=== PATIENT | female | born 1985 | race Two or more races ===

== ENCOUNTER 2017-02-18 02:49 | Emergency (ER) | payer OTHER ==
[2017-02-18 03:15] VITALS: BP 121/81; PULSE 82; TEMP 98.1; BMI 23.5
[2017-02-18] MEDS ORDERED: KETOROLAC TROMETHAMINE 30 MG/1 ML VIAL IM ONE (04:19)
--- NOTE | 2017-02-18 04:43 | PDOC ---
History of Present Illness - General Chief Complaint: Pain, Acute Stated Complaint: NECK PAIN Time Seen by Provider: 02/18/17 03:16 - History of Present Illness Initial Comments: 02/18/17 04:38 CHIEF COMPLAINT: neck discomfort HISTORY OF PRESENT ILLNESS: 31 yo F with hx of NIDDM presents to ED with neck pain x 1 day. Patient reports waking up in the morning with neck discomfort. She does report lifting heavy items including her child that could cause muscle pain in her left shoulder and neck. She took 600 mg of ibuprofen around 3 pm, which did relieve the pain, but then the pain returned later in the evening. She reports that when she turns her head she feel like it causes a headache. No recent travel or sick contacts. PAST MEDICAL HISTORY: Denies past medical history FAMILY HISTORY: Denies SOCIAL HISTORY: Denies tobacco, alcohol, illicit drug use. SURGICAL HISTORY: Denies ALLERGIES: No known drug allergies REVIEW OF SYSTEMS General/Constitutional: Denies fever or chills. Denies weakness, weight change. HEENT: Denies change in vision. Denies ear pain or discharge. Denies sore throat. Cardiovascular: Denies chest pain or shortness of breath. Respiratory: Denies cough, wheezing, or hemoptysis. Gastrointestinal: Denies nausea, vomiting, diarrhea or constipation. Denies rectal bleeding. Genitourinary: Denies dysuria, frequency, or change in urination. Musculoskeletal: Left neck discomfort. Denies joint or muscle swelling or pain. Skin and breasts: Denies rash or easy bruising. PHYSICAL EXAM General Appearance: Well-appearing, appropriately dressed. No apparent distress. HEENT: EOMI, PERRLA, normal ENT inspection, normal voice, TMs normal, pharynx normal. No conjunctival pallor. No photophobia, scleral icterus. Neck: Tenderness to left neck. on palpation. No tenderness to midline cervical spine. Full ROM. Supple. Trachea midline. No tenderness, rigidity, carotid bruit, stridor, lymphadenopathy, or thyromegaly. Respiratory/Chest: Lungs CTAB. No shortness of breath, chest tenderness, respiratory distress, accessory muscle use. No crackles, rales, rhonchi, stridor , wheezing, dullness Cardiovascular: RRR. S1, S2. No JVD, murmur, bradycardia, tachycardia. Vascular Pulses: Dorsalis-Pedis (R): 2+, Dorsalis-Pedis (L): 2+ Gastrointestinal/Abdominal: Normal bowel sounds. Abdomen soft, non-distended. No tenderness or rebound tenderness. No organomegaly, pulsatile mass, guarding , hernia, hepatomegaly, splenomegaly. Lymphatic: No adenopathy, tenderness. Musculoskeletal/Extremities: Normal inspection. FROM of all extremities, normal capillary refill. Pelvis Stable. No CVA tenderness. No tenderness to extremities, pedal edema, swelling, erythema or deformity. Integumentary: Appropriate color, dry, warm. No cyanosis, erythema, jaundice or rash Neurologic: prosthetic makeup designer II-XII intact. Fully oriented, alert. Appropriate mood/affect. Motor strength 5/5. No appreciable EOM palsy, facial droop or sensory deficit. Past History - Past Medical History Allergies/Adverse Reactions: Allergies Allergy/AdvReac Type Severity Reaction Status Date / Time No Known Allergies Allergy Verified 02/18/17 03:11 Home Medications: Ambulatory Orders Diazepam [Valium] 5 mg PO HS #5 tablet MDD 2 02/18/17 Ibuprofen [Motrin -] 600 mg PO TID PRN 02/18/17 Metformin HCl [Glucophage -] 850 mg PO BID 02/18/17 Naproxen 250 mg PO BID #14 tablet 02/18/17 Diabetes: Yes (type 2) - Psycho/Social/Smoking Cessation Hx Suicidal Ideation: No Smoking History: Never smoked *Physical Exam - Vital Signs Last Vital Signs Temp Pulse Resp BP Pulse Ox 98.1 F 82 18 121/81 100 02/18/17 03:11 02/18/17 03:11 02/18/17 03:11 02/18/17 03:11 02/18/17 03:11 Medical Decision Making - Medical Decision Making 02/18/17 04:41 31 yo F with hx of NIDDM presents to ED with neck pain x 1 day. Patient is well appearing and in no distress. Mild tenderness to left neck with palpation. -30 mg IM Toradol Cyclobenzaprine rx sent to pharm. Advised patient to take medication as prescribed and f/u with orthopedics if pain persists past 2-3 days. Advised patient of signs and symptoms for return to ER; patient verbalized understanding and agrees to plan. *DC/Admit/Observation/Transfer Diagnosis at time of Disposition: Neck muscle spasm - Discharge Dispostion Disposition: HOME Condition at time of disposition: Stable Admit: No - Prescriptions Prescriptions: Naproxen 250 mg PO BID #14 tablet Diazepam [Valium] 5 mg PO HS #5 tablet MDD 2 - Referrals Referrals: Juany Harden MD [Primary Care Provider] - Colby Gandara MD [Staff Physician] - - Patient Instructions Printed Discharge Instructions: DI for Torticollis Additional Instructions: Please take medication as prescribed and follow up with orthopedics this week if symptoms persist. Do not drive or operate machinery while taking Valium. If you experience any sudden headache, change in vision, difficulty breathing, fever, chills, nausea, vomiting, or any new or worsening symptoms, please return to the ER.
[2017-02-18] MEDS ORDERED: KETOROLAC TROMETHAMINE 30 MG/1 ML VIAL ONE (04:46)
[2017-02-18] MEDS ORDERED: diazePAM 5 MG TABLET PO ONE (05:39)
[2017-02-18] MEDS ORDERED: diazePAM 5 MG TABLET ONE (05:46)
== END 2017-02-18 06:32 | disposition home or self-care (01) ==
LOC: JER 02:49
PROC: 3E0233Z Introduction of Anti-inflammatory into Muscle, Percutaneous Approach (ICD-10-PCS; principal; 2017-02-18)
DX: M62.838 Other muscle spasm (principal); E11.9 Type 2 diabetes mellitus without complications; Z79.84 Long term (current) use of oral hypoglycemic drugs
CPT/HCPCS: 84703; 96372; 99282-25

== ENCOUNTER 2018-07-10 12:30 | Inpatient (IN) | payer OTHER ==
[2018-07-10] MEDS ORDERED: OXYTOCIN 30 UNITS in 0.9% NS 30 UNIT/500 ML INFUS.BAG IVPB SCH (13:30)
--- NOTE | 2018-07-10 13:35 | HP ---
Past Medical History - Admission Chief Complaint: Here for IOL for GDMA2 History Source: Patient Limitations to Obtaining History: No Limitations, Language Barrier - Past Medical History LEATHER SORTER: No: Alzheimer's, CVA, Dementia, Migraine, Multiple Sclerosis, Peripheral Neuropathy, Parkinson's, Seizure, Syncope, TIA, Vertigo, Other Cardiovascular: No: AFIB, Aneurysm, Aortic Insufficiency, Aortic Stenosis, CAD, CHF, Deep Vein Thrombosis, HTN, Hyperlipdemia, MA, Mitral Insufficiency, Mitral Stenosis, Murmur, Pulmonary Hypertension, Other Pulmonary: No: Asthma, Bronchitis, Cancer, COPD, O2 Dependent, Pneumonia, Previously Intubated, Pulmonary Embolus, Pulmonary Fibrosis, Sleep Apnea, Other Gastrointestinal: No: Ascites, Cancer, Constipation, Crohn's Disease, Diverticulitis, Diverticulosis, Esophageal Varices, Gastritis, GERD, GI Bleed, Hemorrhoids, Hiatal Hernia, Inflamatory Bowel Disease, Irritable Bowel Disease, Pancreatitis, Peptic Ulcer Disease, Ulcerative Colitis, Other Hepatobiliary: No: Cirrhosis, Cholelithiasis, Cholecystitis, Choledocholithiasis , Hepatitis A, Hepatitis B, Hepatitis C, Other Renal/: No: Renal Failure, Renal Inusuff, BPH, Cancer, Hematuria, Hemodialysis , Neurogenic Bladder, Renal Calculi, UTI, Other Reproductive: No: Ectopic , Endometriosis, Fibroids, PID, Polycystic Ovary Syndrome, Postmenopausal, Other Infectious Disease: No: AIDS, C-Diff, Herpes Zoster, HIV, MRSA, STD's, Tuberculosis, VREF, Other Psych: No: Addictions, Anxiety, Bipolar, Depression, Panic, Psychosis, Schizophrenia, Other - Past Surgical History Past Surgical History: No: None, AAA Repair, AICD, Amputation, Appendectomy, Arthrosocopy, AV Fistula/Graft, Bariatric Surgery, Breast Biopsy, Bypass, CABG, Carotid Endarterectomy, Cataract Removal, Cholecystectomy, Colectomy, Colonoscopy, Colostomy, Craniotomy, , Cystectomy, Hernia Repair, Hysterectomy, Ileal Conduit, Ileosotomy, Joint Replacement, Kidney Transplant, Laminectomy, Liver Transplant, Mastectomy, Nephrectomy, Oopherectomy, Orchiectomy, Permanent Pacemaker, Prostatectomy, Splenectomy, Stent, Thoracotomy , TURP, Tonsillectomy, Tubal Ligation, Upper Endoscopy, Valve Replacement, Vasectomy, Vein Stripping/Ligation Hx Myomectomy: No Hx Transabdominal Cerclage: No - Smoking History Smoking history: Never smoked - Alcohol/Substance Use Hx Alcohol Use: No History of Substance Use: reports: None - Social History Usual Living Arrangement: Yes: With Spouse ADL: Independent History of Recent Travel: No Home Medications - Allergies Allergies/Adverse Reactions: Allergies Allergy/AdvReac Type Severity Reaction Status Date / Time No Known Allergies Allergy Verified 07/10/18 13:25 - Home Medications Home Medications: Ambulatory Orders Insulin (Levemir) [Levemir Vial] 45 units SCJ HS 07/10/18 Insulin Aspart [Novolog Flexpen] 50 units SCJ ACBK 07/10/18 Pnv,Calcium 72/Iron/Folic Acid [ Plus Tablet] 1 tab PO DAILY 07/10/18 Review of Systems - Review of Systems Constitutional: denies: No Symptoms, Chills, Diaphoresis, Fever, Lethargy, Loss of Appetite, Malaise, Night Sweats, Unintentional Wgt. Loss, Weakness, Other Eyes: denies: No Symptoms, Blind Spots, Blurred Vision, Double Vision, Eye Pain , Floaters, Photophobia, Recent Change in Vision, Other HENT: denies: No Symptoms, Difficult Swallowing, Ear Discharge, Ear Pain, Epistaxis, Gingival Bleeding, Hearing Loss, Mouth Swelling, Nasal Congestion, Ocular Prosthesis, Throat Pain, Toothache, Ringing in Ears, Other Neck: denies: No Symptoms, Decreased ROM, Lumps, Pain on Movement, Stiffness, Swollen Glands, Tenderness, Other Cardiovascular: denies: No Symptoms, Chest Pain, Edema, Palpitations, Shortness of Breath, Other Respiratory: denies: No Symptoms, Cough, Exercise Intolerance, Hemoptysis, Orthopnea, PND, Snoring, SOB, SOB on Exertion, Wheezing, Other Gastrointestinal: denies: No Symptoms, Abdominal Pain, Bloating, Constipation, Diarrhea, Dysphagia, Indigestion, Melena, Nausea, Rectal Bleeding, Vomiting, Vomiting Blood, Other Genitourinary: denies: No Symptoms, Burning, Discharge, Dysuria, Flank Pain, Frequency, Hematuria, Incontinence, Lesions, Menses, Pain, Testicular Mass, Testicular Pain, Testicular Swelling, Urgency, Vaginal Bleeding, Other Breasts: denies: No Symptoms Reported, See HPI, Breast Implants, Discharge from Nipple, Lumps, Pain, Skin Changes, Other Musculoskeletal: denies: No Symptoms, Back Pain, Crepitus, Decreased ROM, Extremity Pain, Joint Pain, Joint Swelling, Muscle Pain, Muscle Cramps, Muscle Weakness, Other Integumentary: denies: No Symptoms, Blister, Bruising, Change in Color, Eczema, Erythema, Incision, Lesions, Lump, Pallor, Pruritis, Rash, Wound, Other Neurological: denies: No Symptoms, Change in LOC, Change in Speech, Confusion, Dizziness, Headache, Incoordination, Numbness, Parasthesia, Pre-Existing Deficit , Seizure, Syncope, Tremors, Unsteady Gait, Weakness, Other Endocrine: denies: No Symptoms, Excessive Sweating, Flushing, Increased Hunger, Increased Thirst, Intolerance to Cold, Intolerance to Heat, Unexplained Weight Gain, Unexplained Weight Loss, Other Hematology/Lymphatic: denies: No Symptoms, Easily Bruised, Excessive Bleeding, Swollen Glands, Other Psychiatric: denies: No Symptoms, Altered Sleep Pattern, Anxiety, Depression, Hallucinations, Panic, Paranoia, Suicidal, Other Physical Exam - Maternity Constitutional: Yes: Well Nourished, No Distress, Calm Eyes: Yes: WNL, Conjunctiva Clear, EOM Intact Cardiovascular: Yes: WNL, Regular Rate and Rhythm - Abdominal Exam/OB Number of Fetuses: Single Presentation: Vertex Contractions: Yes Regularity: Irregular Intensity: Mild/Mod Monitor Mode: External Category: I Accelerations: Uniform Decelerations: None - Vaginal Exam/OB Vaginal Bleediing: No Speculum Exam: No Dilatation (cm): 3 Effacement (%): 50 Amniotic Membrane Status: Intact Presentation: Vertex/Position Station: -3 - Physical Exam Edema: No Hemorrhage Risk Assessment - Risk Factors Medium Risk Factors: Yes: EFW greater than 4000g High Risk Factors: Yes: None (Prior to 10lb infant without shoulder dystocia) Risk Score: 1 Risk Level: Medium Risk Problem List - Problems (1) Gestational diabetes mellitus (GDM) affecting fourth Code(s): O24.419 - GESTATIONAL DIABETES MELLITUS IN , [facility] CONTROL Assessment/Plan 33yo @ 39wks here for IOL for GDMA2 -Admit to L&D -Clear liquids -Ampicillin for GBS -Pitocin for IOL -H/O 9 and 10lb NSVDs without shoulder dystocia -Cat 1 tracing Syeda Mishra MD
[2018-07-10] MEDS ORDERED: AMPICILLIN - 2 GM in SODIUM CHLORIDE 100 ML IVPB ONE (13:52)
[2018-07-10] MEDS ORDERED: SODIUM CHLORIDE 100 ML IVPB ONE ×2 (13:56→17:12)
[2018-07-10] MEDS ORDERED: AMPICILLIN SODIUM 2 GM VIAL ONE (13:56)
[2018-07-10] MEDS: LACTATED RINGERS SOLUTION 1,000 ML/1,000 ML INFUS.BAG IV SCH ×2 (14:00→21:26)
[2018-07-10 14:35] VITALS: BMI 34.0
[2018-07-10] MEDS ORDERED: TUBERCULIN PPD 5 TU/0.1ML SYRINGE (IN PATIENT USE ONLY) ID ONE (16:15)
[2018-07-10 16:20] LABS: INR 0.91 (0.83-1.09); PROTHROMBIN TIME (PATIENT) 10.7 SEC (9.7-13.0)
[2018-07-10 16:22] LABS: ACTIVATED PTT 23.7 SECONDS (25.2-36.5); BASO % 0.5 % (0-2.0); EOS % 0.5 % (0-4.5); HEMATOCRIT 38.8 % (32.4-45.2); HEMOGLOBIN 12.7 GM/dL (10.7-15.3); LYMPH % 28.4 % (8-40); MCH 27.5 pg (25.7-33.7); MCHC 32.8 g/dl (32.0-36.0); MEAN CELL VOLUME 83.8 fl (80-96); MEAN PLT VOLUME 11.7 fl (7.5-11.1); MONO % 8.8 % (3.8-10.2); NEUT % 61.8 % (42.8-82.8); PLATELET COUNT 150 K/MM3 (134-434); RBC 4.63 M/mm3 (3.60-5.2); RDW 14.2 % (11.6-15.6); WHITE BLOOD COUNT 8.4 K/mm3 (4.0-10.0)
[2018-07-10] MEDS ORDERED: AMPICILLIN SODIUM 1 GM VIAL ONE ×2 (17:12→21:44)
[2018-07-10] MEDS: AMPICILLIN - 1 GM in SODIUM CHLORIDE 100 ML IVPB SCH ×2 (18:00→21:57)
--- NOTE | 2018-07-10 18:12 | PN ---
Progress Note, Labor Vaginal Exam #1 Labor Exam Date: 07/10/18 Labor Exam Time: 18:11 Heart Rate (range): Cat 1 Dilatation: 3 Effacement (%): 50 Amniotic Membrane Status: Ruptured Presentation: Vertex/Position Station: -3 (IOL for GDMA2 AROM, clears FS q4 hours Anticipate JENNIFER Mishra MD)
[2018-07-10] MEDS ORDERED: ELECTROLYTE-148 SOLN 1,000 ML IV SCH (22:00)
[2018-07-10] MEDS ORDERED: FENTANYL/BUPIVACAINE/NS/PF - PCEA - 50 ML DISP.SYRIN EP ONE (22:29)
[2018-07-10] MEDS ORDERED: FENTANYL/BUPIVACAINE/NS/PF - PCEA - 50 ML DISP.SYRIN EP SCH (23:05)
[2018-07-10] MEDS ORDERED: OXYTOCIN 20 UNITS in 0.9% NS 20 UNIT/1,000 ML INFUS.BAG IV ONE (23:17)
[2018-07-11] MEDS: OXYTOCIN 20 UNITS in 0.9% NS 20 UNIT/1,000 ML INFUS.BAG IV SCH ×2 (00:15→04:34)
[2018-07-11] MEDS ORDERED: WITCH HAZEL 50% (TUCKS) 40 PAD/JAR PAD TP PRN (00:27)
[2018-07-11] MEDS ORDERED: BISACODYL 10 MG SUPP.RECT RC PRN (00:27)
[2018-07-11] MEDS ORDERED: BENZOCAINE 28 GM HEMORRHOIDAL OINTMENT TP PRN (00:27)
[2018-07-11] MEDS ORDERED: BENZOCAINE 20% 57 GM BOTTLE TP PRN (00:27)
--- NOTE | 2018-07-11 00:32 | PN ---
Delivery - Delivery Vaginal Delivery: Spontaneous Type of Anesthesia: Epidural Episiotomy/Laceration: Midline, 1st degree EBL (cc): 250 Delivery, Single - [place] Feeding Plan Initial Plan: Exclusive throughout hospitalization Remarks - Remarks Remarks: of VMI from ANA position over intact perineum. Epidural anesthesia. 39wk gestation. Loose nuchal delivered through. No meconium. Spontaneous delivery of anterior shoulder. placed onto maternal abdomen. Cord clamped and cut. handed off. Spontaneous delivery of intact placenta with 3VC. Fundus firm. Perineum inspected, first degree laceration repaired with 2-0 chromic. Good hemostasis. Mother and baby doing well. EBL 250ml.
[2018-07-11] MEDS: ACETAMINOPHEN 325 MG TABLET (FP) PO PRN ×3 (00:35→20:09)
[2018-07-11] MEDS: IBUPROFEN 600 MG TABLET (FP) PO PRN ×3 (00:35→20:08)
[2018-07-11] MEDS ORDERED: ACETAMINOPHEN 325 MG TABLET (FP) ONE (00:36)
[2018-07-11] MEDS ORDERED: IBUPROFEN 600 MG TABLET (FP) PO ONE (00:36)
[2018-07-11] MEDS ORDERED: NALOXONE HCL 0.4 MG/ML VIAL IVPUSH PRN (00:48)
[2018-07-11] MEDS ORDERED: FENTANYL/BUPIVACAINE/NS/PF - PCEA - 50 ML DISP.SYRIN EP SCH (01:00)
[2018-07-11] MEDS: INSULIN SLIDING SCALE (NOVOLOG) 1 VIAL SQ SCH ×5 (02:03→22:26)
[2018-07-11] MEDS: PRENATAL VITAMINS W/ FOLIC ACID TABLET (FP) PO SCH (10:24)
[2018-07-12] MEDS: INSULIN SLIDING SCALE (NOVOLOG) 1 VIAL SQ SCH ×4 (06:19→23:25)
--- NOTE | 2018-07-12 07:45 | PN ---
Progress Note (short form) - Note Progress Note: ppd 1 s/p , GDM BGM normal no c/o ,no excess vaginal bleeding, no pain CBC, BMP 07/10/18 15:00 Last Vital Signs Temp Pulse Resp BP Pulse Ox 97.9 F 72 20 118/72 100 07/12/18 01:13 07/12/18 01:13 07/12/18 01:13 07/12/18 01:13 07/11/18 01:15 abdomen soft, ,non tender , uterus firm ,below umbilicus. lochia mild perineum clean no calf tenderness impression ppd 1, GDM . doing well, BGM are normal , no excess vaginal bleeding plan ambulate , cbc plan for D/C home in am.
[2018-07-12 08:34] LABS: BASO % 0.8 % (0-2.0); EOS % 1.1 % (0-4.5); HEMATOCRIT 38.9 % (32.4-45.2); HEMOGLOBIN 12.8 GM/dL (10.7-15.3); MCH 27.4 pg (25.7-33.7); MCHC 32.9 g/dl (32.0-36.0); MEAN CELL VOLUME 83.3 fl (80-96); MEAN PLT VOLUME 10.1 fl (7.5-11.1); MONO % 7.4 % (3.8-10.2); NEUT % 48.7 % (42.8-82.8); PLATELET COUNT 146 K/MM3 (134-434); RBC 4.67 M/mm3 (3.60-5.2); RDW 14.5 % (11.6-15.6); WHITE BLOOD COUNT 9.3 K/mm3 (4.0-10.0)
[2018-07-12] MEDS: PRENATAL VITAMINS W/ FOLIC ACID TABLET (FP) PO SCH (10:42)
[2018-07-12] MEDS ORDERED: SENNOSIDES/DOCUSATE COMBO (SENNA PLUS) TABLET (UD) PO PRN (22:00)
[2018-07-13] MEDS: ACETAMINOPHEN 325 MG TABLET (FP) PO PRN (00:08)
[2018-07-13] MEDS: IBUPROFEN 600 MG TABLET (FP) PO PRN (00:10)
[2018-07-13] MEDS: INSULIN SLIDING SCALE (NOVOLOG) 1 VIAL SQ SCH ×2 (06:52→11:20)
[2018-07-13] MEDS: PRENATAL VITAMINS W/ FOLIC ACID TABLET (FP) PO SCH (10:19)
[2018-07-13 12:07] VITALS: BP 112/66; PULSE 77; TEMP 97.9
--- NOTE | 2018-07-13 16:58 | DS ---
Physical Exam-RECREATION AIDE Vital Signs: Vital Signs Temperature 97.9 F 07/13/18 10:00 Pulse Rate 77 07/13/18 10:00 Respiratory Rate 20 07/13/18 10:00 Blood Pressure 112/66 07/13/18 10:00 O2 Sat by Pulse Oximetry (%) 100 07/11/18 01:15 Constitutional: Yes: Well Nourished, No Distress, Calm Eyes: Yes: WNL, Conjunctiva Clear, EOM Intact HENT: Yes: WNL, Atraumatic, Normocephalic Neck: Yes: WNL, Supple, Trachea Midline Cardiovascular: Yes: WNL, Regular Rate and Rhythm Respiratory: Yes: WNL, Regular, CTA Bilaterally Gastrointestinal: Yes: WNL ...Rectal Exam: Yes: WNL Renal/: Yes: WNL External Genitalia: Yes: Normal ....Post : Yes: Uterus firm, Uterus non-tender, Slight lochia rubra Breast(s): Yes: WNL Musculoskeletal: Yes: WNL Extremities: Yes: WNL Edema: No Integumentary: Yes: WNL Neurological: Yes: WNL, Alert, Oriented ...Motor Strength: WNL Psychiatric: Yes: WNL, Alert, Oriented Labs: CBC, BMP 07/12/18 08:00 Delivery - Delivery Vaginal Delivery: Spontaneous Type of Anesthesia: Epidural Episiotomy/Laceration: Midline, 1st degree EBL (cc): 250 Delivery, Single - Stages of Labor Date 1st Stage Initiatied: 07/11/18 Time 1st Stage Initiated: 14:00 Date 2nd Stage Initiated: 07/11/18 Time 2nd Stage Initiated: 23:30 Date of Delivery: 07/11/18 Time of Delivery: 00:07 Time Placenta Delivered: 00:11 Placenta: Yes: Spontaneous - Condition of Excavating Supervisor/Environmental Engineer Present: Yes Name: Khris Billy Gender: Male Weight: 10 lb 4 oz Position: Left, OA Total Hours ROM (Hrs/Mins): 6HOURS/6MIN - 1 Minute Total Score: 8 5 Minutes Total Score: 9 - Feeding Plan Initial Plan: Exclusive throughout hospitalization Discharge Summary Reason For Visit: INDUCTION OF LABOR Procedures: Principal: Hospital Course: no complication Condition: Good - Instructions Diet, Activity, Other Instructions: continue BGM . regular diet, follow up [facility] care 4 weeks, if pain, fever, heavy vaginal bleeding call MD Referrals: Syeda Mishra MD [Staff Physician] - Disposition: HOME - Home Medications Comprehensive Discharge Medication List: Ambulatory Orders Insulin (Levemir) [Levemir Vial] 45 units SCJ HS 07/10/18 Insulin Aspart [Novolog Flexpen] 50 units SCJ ACBK 07/10/18 Pnv,Calcium 72/Iron/Folic Acid [ Plus Tablet] 1 tab PO DAILY 07/10/18 Ibuprofen [Motrin Ib] 200 mg PO BID PRN #30 tablet 07/11/18
== END 2018-07-13 14:15 | disposition home or self-care (01) | DRG 560 ==
LOC: JLDR 12:30 → J3W 07-11 02:20
PROVIDERS: ADMIT Obstetrics & Gynecology; ATTEND Obstetrics & Gynecology
PROC: 10E0XZZ Delivery of Products of Conception, External Approach (ICD-10-PCS; principal; 2018-07-11)
PROC: 0HQ9XZZ Repair Perineum Skin, External Approach (ICD-10-PCS; 2018-07-11)
DX: O24.424 Gestational diabetes mellitus in childbirth, insulin controlled (principal); O70.0 First degree perineal laceration during delivery; Z3A.39 39 weeks gestation of pregnancy; Z37.0 Single live birth
CPT/HCPCS: 36415; 59409; 82962; 85025; 85610; 85730; 86593; 86850; 86900; 86901